=== PATIENT | male | born 1950 | race African-American/Black ===

== ENCOUNTER 2017-01-01 11:31 | Emergency (ER) | payer OTHER ==
[~2017-01-01] VITALS: Ht 177.8 cm; Wt 70.3 kg
[2017-01-01 11:38] VITALS: BP 147/86
== END 2017-01-01 12:45 | disposition left against medical advice (07) ==
LOC: ER 11:33
DX: S61.412A Laceration without foreign body of left hand, initial encounter (principal); Z53.21 Procedure and treatment not carried out due to patient leaving prior to being seen by health care provider; W27.8XXA Contact with other nonpowered hand tool, initial encounter; Y93.89 Activity, other specified; Y99.8 Other external cause status; Y92.89 Other specified places as the place of occurrence of the external cause